=== PATIENT | female | born 1940 | race Two or more races ===

== ENCOUNTER 2018-01-19 08:23 | Outpatient (CLI) | payer OTHER ==
[~2018-01-19 08:23] MED LIST: LEVOXYL25 MCG PO; LEVOXYL50 MCG; LISINOPRIL2.5 MG PO; SIMVASTATIN40 MG; SIMVASTATIN5 MG PO; VERAPAMIL ER100 MG PO; VERAPAMIL ER240 MG
== END 2018-01-19 09:19 | disposition home or self-care (01) ==
LOC: RAD 501 08:23
DX: M15.8 Other polyosteoarthritis (principal); M05.79 Rheumatoid arthritis with rheumatoid factor of multiple sites without organ or systems involvement

== ENCOUNTER 2020-07-24 09:01 | Emergency (ER) | payer OTHER ==
[~2020-07-24] VITALS: Ht 160 cm; Wt 63.5 kg
== END 2020-07-24 13:39 | disposition home or self-care (01) ==
LOC: ER 09:01
DX: R42 Dizziness and giddiness (principal); Z03.818 Encounter for observation for suspected exposure to other biological agents ruled out

== ENCOUNTER 2021-07-13 07:22 | Outpatient (CLI) | payer OTHER | END 2021-07-13 07:25 | disposition home or self-care (01) | LOC: TOM 07:22 | PROVIDERS: ATTEND Internal Medicine Gastroenterology | DX: K57.90 Diverticulosis of intestine, part unspecified, without perforation or abscess without bleeding (principal); Z12.11 Encounter for screening for malignant neoplasm of colon ==

== ENCOUNTER 2022-01-27 08:45 | Outpatient (CLI) | payer OTHER | END 2022-01-27 08:50 | disposition home or self-care (01) | LOC: RAD 08:45 | DX: M25.562 Pain in left knee (principal) ==

== ENCOUNTER 2022-05-24 07:45 | Outpatient (CLI) | payer OTHER | END 2022-05-24 07:52 | disposition home or self-care (01) | LOC: RAD 07:45 | DX: J06.9 Acute upper respiratory infection, unspecified (principal) ==

== ENCOUNTER 2023-05-30 08:35 | Outpatient (CLI) | payer OTHER | END 2023-05-30 08:40 | disposition home or self-care (01) | LOC: RAD 08:35 | PROVIDERS: ATTEND Specialist | DX: M51.34 Other intervertebral disc degeneration, thoracic region (principal); M51.36 Other intervertebral disc degeneration, lumbar region ==

== ENCOUNTER 2023-10-10 09:38 | Outpatient (CLI) | payer OTHER ==
[~2023-10-10 09:38] MED LIST changes: +DICY20TA PO; +INTESTINEX680 M1 PO; +KEFLEX500 MG PO; +LOSARTAN POTASS50 MG PO; +MECLIZINE HCL25 MG PO; +ONDANSETRON HCL4 MG PO; +PEPCID AC20 MG PO; +PEPCID20 MG PO; +SIMVASTATIN5 MG; +SYNTHROID50 MCG; +VISTARIL25 MG PO
== END 2023-10-10 09:43 | disposition home or self-care (01) ==
LOC: MRI 09:38
PROVIDERS: ATTEND Psychiatry & Neurology Clinical Neurophysiology
DX: G31.84 Mild cognitive impairment of uncertain or unknown etiology (principal); G30.1 Alzheimer's disease with late onset
CPT/HCPCS: 70551

== ENCOUNTER 2024-04-27 08:21 | Outpatient (CLI) | payer OTHER | END 2024-04-27 08:28 | disposition home or self-care (01) | LOC: TOM 08:21 | DX: G44.311 Acute post-traumatic headache, intractable (principal); S09.90XS Unspecified injury of head, sequela ==

== ENCOUNTER 2024-08-16 07:27 | Outpatient (CLI) | payer OTHER | END 2024-08-16 07:29 | disposition home or self-care (01) | LOC: RAD 07:27 | PROVIDERS: ATTEND General Practice | DX: J98.4 Other disorders of lung (principal) ==

== ENCOUNTER 2024-10-01 08:31 | Outpatient (CLI) | payer OTHER | END 2024-10-01 08:34 | disposition home or self-care (01) | LOC: RAD 08:31 | PROVIDERS: ATTEND Obstetrics & Gynecology | DX: R05.1 Acute cough (principal) ==

== ENCOUNTER 2024-10-16 21:31 | Emergency (ER) | payer OTHER ==
[~2024-10-16] VITALS: Ht 165.1 cm; Wt 68.0 kg
[2024-10-17] MEDS ORDERED: TETANUS & DIPHTHERIA TOX,ADULT 0.5 ML VIAL IM STA (01:16)
[2024-10-17] MEDS ORDERED: TETANUS DIPHTHERIA TOX. ADSOR 5 ML VIAL IM ONE (01:22)
[2024-10-17 01:53] LABS: HEMATOCRIT 38.9 % (36.0-45.00); HEMOGLOBIN 12.7 g/dL (12.0-15.00); MEAN CELL VOLUME 87.9 fL (80.00-100.00); MEAN CORPUSCULAR HEMOGLOBIN 28.8 pg (27.00-32.0); MEAN CORPUSCULAR HGB CONC 32.8 g/dl (32.0-36.0); PLATELET COUNT 226 K/uL (150-450); RED BLOOD COUNT 4.42 M/uL (4.00-6.00); RED CELL DISTRIBUTION WIDTH 13.8 % (11.5-14.5)
[2024-10-17 02:05] LABS: PH,URINE 6.5 (5.0-8.0); URINE APPEARANCE Cloudy; URINE BILIRRUBIN Negative (NEGATIVE); URINE BLOOD Large; URINE COLOR Yellow; URINE GLUCOSE Negative (NEGATIVE); URINE KETONE Negative (NEGATIVE); URINE LEUKOCYTE Trace; URINE NITRATE Negative; URINE PROTEIN Trace (NEGATIVE); URINE UROBILINOGEN 0.2 E.U./dl
[2024-10-17 02:08] LABS: INR 1.04; PARTIAL THROMBOPLASTIN TIME 24.1 SECONDS (22.0-34.0); PROTHROMBIN TIME 11.3 SECONDS (9.0-11.5)
[2024-10-17 02:09] LABS: URINE BACTERIA 19.5 uL (0.0-1933); URINE EPITHELIAL CELLS 7.4 uL (0.0-38.8); URINE RBC 1643.7 uL (0.0-20.8); URINE WBC 60.1 uL (0.0-23.2)
[2024-10-17 02:15] LABS: ALBUMIN 3.3 gm/dL (3.4-5.0); BILIRUBIN TOTAL 0.65 mg/dL (0.3-1.2); CALCIUM 9.3 mg/dL (8.5-10.1); CREATININE SERUM 0.88 mg/dL (0.55-1.02); GFR 61.52; GLOBULINA 3.4 G/DL (2.4-3.5); POTASSIUM 4.23 mEq/L (3.5-5.1); TOTAL PROTEIN 6.7 gm/dL (6.4-8.2)
[2024-10-17 02:23] LABS: URINE CAST 0.88 uL (0.0-1.40)
[2024-10-17] MEDS ORDERED: ACETAMINOPHEN 500 MG GEL..CAP PO STA (04:28)
[2024-10-17] MEDS ORDERED: ACETAMINOPHEN 500 MG GEL..CAP PO ONE (04:34)
[2024-10-17] MEDS ORDERED: POVIDONE-IODINE 118 ML BOTT TOP ONE (04:34)
[2024-10-17] MEDS ORDERED: HYDROGEN PEROXIDE 473 ML BOTTLE TOP ONE (04:34)
[2024-10-17] MEDS ORDERED: CEPHALEXIN500 MG PO (05:43)
[2024-10-17] MEDS ORDERED: ANTIVERT25 M2 PO (05:43)
== END 2024-10-17 05:57 ==
LOC: ER 21:31
PROVIDERS: General Practice
DX: R55 Syncope and collapse (principal); S01.02XA Laceration with foreign body of scalp, initial encounter; W18.39XA Other fall on same level, initial encounter; Y93.F1 Activity, caregiving, bathing; Y92.012 Bathroom of single-family (private) house as the place of occurrence of the external cause

== ENCOUNTER 2025-02-08 12:05 | Emergency (ER) | payer OTHER ==
[~2025-02-08] VITALS: Ht 157.5 cm; Wt 65.8 kg
[~2025-02-08 12:05] MED LIST changes: +ANTIVERT25 M2 PO; +CEPHALEXIN500 MG PO
[2025-02-08] MEDS ORDERED: KETOROLAC TROMETHAMINE 30 MG VIAL IM STA (12:23)
[2025-02-08] MEDS ORDERED: KETOROLAC TROMETHAMINE 30 MG VIAL ONE (12:33)
== END 2025-02-08 14:42 | disposition home or self-care (01) ==
LOC: ER 12:05
DX: S89.81XA Other specified injuries of right lower leg, initial encounter (principal); W19.XXXA Unspecified fall, initial encounter; Y93.89 Activity, other specified; Y92.488 Other paved roadways as the place of occurrence of the external cause; Y99.8 Other external cause status; M25.561 Pain in right knee
CPT/HCPCS: 73560; 96372; 99283; J1885

== ENCOUNTER 2025-03-10 07:42 | Emergency (ER) | payer OTHER ==
[~2025-03-10] VITALS: Ht 162.6 cm; Wt 62.1 kg
[2025-03-10] MEDS ORDERED: MECLIZINE HCL 25 MG TABLET PO ONE (08:45)
[2025-03-10] MEDS ORDERED: 0.9 % SODIUM CHLORIDE 1,000 ML IV SCH (08:45)
[2025-03-10] MEDS ORDERED: ONDANSETRON HCL 2 MG/ML VIAL IV ONE (08:45)
[2025-03-10 09:23] LABS: BASO % 0.4 % (0.1-1.2); EOS # 0.04 (0.04-0.54); EOS % 0.6 % (0.7-7.0); HEMATOCRIT 42.4 % (34.1-44.9); HEMOGLOBIN 13.7 g/dL (11.2-15.7); LYMPH # 0.47 (1.18-3.74); LYMPH % 6.9 % (19.3-53.1); MEAN CORPUSCULAR HEMOGLOBIN 28.5 pg (25.6-32.2); MONO # 0.57 (0.24-0.82); MONO % 8.4 % (4.7-12.5); NEUT # 5.64 (1.56-6.13); NEUT % 83.4 % (34.0-71.1); PLATELET COUNT 216 K/uL (163-369); RED CELL DISTRIBUTION WIDTH 13.6 % (11.6-14.4)
[2025-03-10 09:54] LABS: ALBUMIN 3.5 gm/dL (3.4-5.0); BILIRUBIN TOTAL 0.4 mg/dL (0.3-1.2); CREATININE SERUM 1.1 mg/dL (0.55-1.02); GFR 47.55; GLOBULINA 3.8 G/DL (2.4-3.5); POTASSIUM 4.43 mEq/L (3.5-5.1); TOTAL PROTEIN 7.3 gm/dL (6.4-8.2)
[2025-03-10 10:21] LABS: COVID-19 AG NEGATIVE (NEGATIVE)
[2025-03-10 10:23] LABS: INFLUENZA A AG POSITIVE (NEGATIVE); INFLUENZA B AG NEGATIVE (NEGATIVE)
[2025-03-10] MEDS ORDERED: OSEL75CA PO (12:10)
[2025-03-10] MEDS ORDERED: TUSNEL LIQUID178 ML PO (12:10)
[2025-03-10] MEDS ORDERED: MOTION SICKNESS25 M1 PO (12:10)
== END 2025-03-10 12:52 | disposition home or self-care (01) ==
LOC: ER 07:42
PROVIDERS: General Practice
DX: J10.1 Influenza due to other identified influenza virus with other respiratory manifestations (principal); R42 Dizziness and giddiness; R10.9 Unspecified abdominal pain; Z20.822 Contact with and (suspected) exposure to COVID-19; I10 Essential (primary) hypertension; E11.9 Type 2 diabetes mellitus without complications
CPT/HCPCS: 36415; 96365; 96366; 99282; J2405; J7030